=== PATIENT | female | born 1940 | race Hispanic/Latino ===

== ENCOUNTER → 2017-06-11 | Outpatient (CLI) | payer OTHER ==
[~2017-06-11] MED LIST: ASPI-1197 PO; CHOL200016 PO; CYAN10009 PO; DICL2100G TP; ESOM40CA PO; GLIP1TAB5 PO; INSLAN SQ; LIOT5TAB8 PO; LISI10TA7 PO; MULT-1258 PO; OMEGA XL PO; PENT100C9 PO; PYRI100T2 PO; ROSU5TAB PO; THYR30TA24 PO
== END | disposition home or self-care (01) ==
LOC: RAH 09:56
PROVIDERS: ATTEND Internal Medicine Nephrology
DX: Z12.31 Encounter for screening mammogram for malignant neoplasm of breast (principal)
CPT/HCPCS: 77067

== ENCOUNTER → 2018-06-13 | Outpatient (CLI) | payer OTHER ==
[~2018-06-13] MED LIST changes: -CHOL200016 PO; +CHOL200059 PO
== END | disposition home or self-care (01) ==
LOC: RAH 12:28
PROVIDERS: ATTEND Internal Medicine Nephrology
DX: Z12.31 Encounter for screening mammogram for malignant neoplasm of breast (principal)
CPT/HCPCS: 77067

== ENCOUNTER → 2019-06-14 | Outpatient (CLI) | payer OTHER ==
[~2019-06-14] MED LIST changes: +CYAN-52 PO; -CYAN10009 PO; +LIOT5TAB11 PO; -LIOT5TAB8 PO; +PYRI100T10 PO; -PYRI100T2 PO
== END | disposition home or self-care (01) ==
LOC: RAH 12:56
PROVIDERS: ATTEND Obstetrics & Gynecology
DX: Z12.31 Encounter for screening mammogram for malignant neoplasm of breast (principal)
CPT/HCPCS: 77067

== ENCOUNTER 2020-01-22 06:11 | Day surgery (SDC) | payer OTHER ==
[2020-01-15 10:11] LABS: BASOPHILS % (AUTO) 0.7 % (0.0-5.0); EOSINOPHILS % (AUTO) 2.2 % (0.0-8.0); HEMATOCRIT 36.4 % (36-48); LYMPHOCYTES % (AUTO) 32.8 % (21.0-51.0); MEAN CORPUSCULAR HEMOGLOBIN 30.7 pg (27.0-33.0); MEAN CORPUSCULAR VOLUME 93.1 fL (79-99); MONOCYTES % (AUTO) 7.7 % (3.0-13.0); NEUTROPHILS % (AUTO) 56.3 % (40.0-77.0); PLATELET COUNT (AUTO) 119 K/uL (130-400); RED BLOOD CELL COUNT(AUTO) 3.91 MIL/uL (4.00-5.50); RED CELL DISTRIBUTION WIDTH 13.8 % (11.0-15.5); WHITE BLOOD COUNT (AUTO) 5.9 K/uL (4.8-10.8)
[2020-01-19 06:23] VITALS: BP 159/68
--- NOTE | 2020-01-19 15:57 | NUR ---
Abnormal labs Called Dr. Mendoza to make him aware of abnormal labs. No further orders given
[2020-01-22] VITALS (19 sets, daily range): BP systolic 128–205; BP diastolic 52–98
[~2020-01-22] VITALS: Ht 167.6 cm; Wt 69.4 kg
[2020-01-22] MEDS ORDERED: SUCCINYLCHOLINE CHLORIDE 20 MG/ML 10 ML VIAL ONE (07:12)
[2020-01-22] MEDS ORDERED: PROPOFOL 10 MG/ML 20ML VIAL IV ONE (07:12)
[2020-01-22] MEDS ORDERED: LIDOCAINE PF 2% 5ML ABBOJECT ONE (07:12)
[2020-01-22] MEDS ORDERED: FENTANYL CITRATE PF 50 MCG/1 ML 2ML VIAL ONE (07:13)
[2020-01-22] MEDS ORDERED: ROCURONIUM 10MG/1ML SYR 10 MG/ML ML ONE (07:13)
[2020-01-22] MEDS ORDERED: FOLI1 PO (07:16)
[2020-01-22] MEDS ORDERED: LEVO75TA10 PO (07:16)
[2020-01-22] MEDS ORDERED: CALC-1009 PO (07:16)
[2020-01-22] MEDS ORDERED: [UNRECOGNIZED DRUG - OTHER] PO (07:16)
[2020-01-22] MEDS ORDERED: ACET-66 PO (07:21)
[2020-01-22] MEDS ORDERED: MAGN250T10 PO (07:21)
[2020-01-22] MEDS ORDERED: VITA400C19 PO (07:21)
[2020-01-22] MEDS ORDERED: OLOP2.5D6 OP (07:21)
[2020-01-22] MEDS ORDERED: KRIL1CAP29 PO (07:21)
[2020-01-22] MEDS ORDERED: INSU3INS3 SQ (07:21)
[2020-01-22] MEDS ORDERED: LEVO50 PO (07:21)
[2020-01-22] MEDS ORDERED: SODIUM CHLORIDE 0.9% 1000ML 1,000 ML IV ONE (07:22)
[2020-01-22] MEDS: CLINDAMYCIN 900 MG/D5% WATER 50 ML IV SCH ×2 (08:05→11:15)
[2020-01-22] MEDS ORDERED: ONDANSETRON HCL 4 MG/2 ML VIAL ONE (08:20)
[2020-01-22] MEDS ORDERED: GLYCOPYRROLATE 1 MG/5 ML SYRINGE ONE (08:55)
[2020-01-22] MEDS ORDERED: NEOSTIGMINE 5MG/5ML SYR IV ONE (08:55)
[2020-01-22] MEDS ORDERED: CLIN300C3 PO (09:02)
[2020-01-22] MEDS ORDERED: ACET1TAB25 PO (09:02)
[2020-01-22] MEDS ORDERED: SUGAMMADEX SODIUM 200 MG/2 ML VIAL IV ONE (09:18)
[2020-01-22] MEDS ORDERED: MEPERIDINE-PF 25 MG/ML SYG ONE (09:32)
[2020-01-22] MEDS ORDERED: ACETAMINOPHEN 325 MG TAB PO SCH (11:00)
--- NOTE | 2020-01-22 12:00 | NUR ---
DISCHARGE DISCHARGE INSTRUCTIONS REVIEWED WITH PATIENT AND NIECE - VERBALIZED UNDERSTANDING. WRITTEN DISCHARGE INSTRUCTIONS PROVIDED. NO DISTRESS NOTED. ALL BELONGINGS RETURNED TO PATIENT. RIGHT KNEE DRESSING - CLEAN, DRY, AND INTACT. IV DISCONTINUED - CATHETER INTACT. PATIENT DISCHARGED VIA WHEELCHAIR TO PRIVATE VEHICLE ACCOMPANIED BY NIECE.
== END 2020-01-22 12:00 | disposition home or self-care (01) ==
LOC: DAH 06:11
PROVIDERS: ATTEND Orthopaedic Surgery
DX: S83.241A Other tear of medial meniscus, current injury, right knee, initial encounter (principal); I10 Essential (primary) hypertension; E78.5 Hyperlipidemia, unspecified; K21.9 Gastro-esophageal reflux disease without esophagitis; E11.9 Type 2 diabetes mellitus without complications; M17.11 Unilateral primary osteoarthritis, right knee; I49.1 Atrial premature depolarization; Z90.710 Acquired absence of both cervix and uterus; Z98.890 Other specified postprocedural states; Z88.0 Allergy status to penicillin; Z88.6 Allergy status to analgesic agent; Z88.8 Allergy status to other drugs, medicaments and biological substances; Z79.899 Other long term (current) drug therapy; M22.41 Chondromalacia patellae, right knee; X58.XXXA Exposure to other specified factors, initial encounter; Y93.89 Activity, other specified; Y92.89 Other specified places as the place of occurrence of the external cause; Y99.8 Other external cause status; Z20.828 Contact with and (suspected) exposure to other viral communicable diseases
CPT/HCPCS: 29881; 36415; 82948 ×2; 85025; 93005; A4215; A4216; A4221; A4222; A4223 ×3; A4606 ×2; A4649 ×2; A4663; A4930; A6223; C9803; J0330; J2001; J2175; J2405; J2704; J2710; J3010; J3490 ×2; J7030 ×2; U0003

== ENCOUNTER → 2021-03-12 | Outpatient (CLI) | payer MEDICARE ==
[~2021-03-12] MED LIST changes: +ACET-66 PO; +ACET1TAB25 PO; +CALC-1009 PO; -CHOL200059 PO; +CLIN300C3 PO; -ESOM40CA PO; +FOLI1 PO; -INSLAN SQ; +INSU3INS3 SQ; +KRIL1CAP29 PO; +LEVO50 PO; +LEVO75TA10 PO; -LIOT5TAB11 PO; +LISI10TA24 PO; -LISI10TA7 PO; +MAGN250T10 PO; +OLOP2.5D16 OP; -OMEGA XL PO; -PENT100C9 PO; -PYRI100T10 PO; -THYR30TA24 PO; +VITA-395 PO; +[UNRECOGNIZED DRUG - OTHER] PO
== END | disposition home or self-care (01) ==
LOC: RAH 07:32
PROVIDERS: ATTEND Internal Medicine Gastroenterology
DX: K74.60 Unspecified cirrhosis of liver (principal)
CPT/HCPCS: 76700; 93975

== ENCOUNTER 2021-07-01 06:02 | Observation (INO) | payer MEDICARE ==
[2021-06-30 15:31] VITALS: BP 160/65
[2021-06-30 15:32] LABS: BASOPHILS % (AUTO) 0.7 % (0.0-5.0); EOSINOPHILS % (AUTO) 2.6 % (0.0-8.0); LYMPHOCYTES % (AUTO) 33.6 % (21.0-51.0); MEAN CORPUSCULAR HEMOGLOBIN 31.1 pg (27.0-33.0); MEAN CORPUSCULAR VOLUME 94.4 fL (79-99); NEUTROPHILS % (AUTO) 54.9 % (40.0-77.0); PLATELET COUNT (AUTO) 129 K/uL (130-400); RED BLOOD CELL COUNT(AUTO) 3.92 MIL/uL (4.00-5.50); RED CELL DISTRIBUTION WIDTH 13.4 % (11.0-15.5); WHITE BLOOD COUNT (AUTO) 5.9 K/uL (4.8-10.8)
[2021-06-30 15:40] LABS: CREATININE 0.9 mg/dL (0.5-1.5); POTASSIUM 4.5 mmol/L (3.5-5.1)
[~2021-07-01] VITALS: Ht 170.2 cm; Wt 68.9 kg
[2021-07-01] VITALS (24 sets, daily range): BP systolic 102–168; BP diastolic 45–86
[2021-07-01] MEDS: CLINDAMYCIN IVPB 600MG/50ML 50 ML IV SCH ×2 (06:00→08:25)
[~2021-07-01 06:02] MED LIST changes: -ACET-66 PO; -ACET1TAB25 PO; -ASPI-1197 PO; -CLIN300C3 PO; +ECOTRIN PO; +LACTATED RINGERS 1000ML 1,000 ML IV SCH; -LISI10TA24 PO; +LISI30TA4 PO; +METO-408 PO; -OLOP2.5D16 OP; +OLOP5DRO26 OP; +OMEP20CA12 PO; +ROSU20TA31 PO; -ROSU5TAB PO; +TYLENOL PM PO; +UBID100C45 PO; -VITA-395 PO; +VITAMIN D3 PO
[2021-07-01] MEDS ORDERED: 0.9%NACL 1000ML 1,000 ML IV ONE (07:09)
[2021-07-01] MEDS ORDERED: LIDOCAINE PF 100MG/5ML (2%) SYRINGE 5ML ONE (08:19)
[2021-07-01] MEDS ORDERED: SUCCINYLCHOLINE CHLORIDE 20 MG/ML 10 ML VIAL ONE (08:19)
[2021-07-01] MEDS ORDERED: PROPOFOL 10 MG/ML 20ML VIAL IV ONE (08:20)
[2021-07-01] MEDS ORDERED: FENTANYL CITRATE PF 50 MCG/1 ML 2ML VIAL ONE (08:20)
[2021-07-01] MEDS ORDERED: GLYCOPYRROLATE 1 MG/5 ML SYRINGE ONE (08:59)
[2021-07-01] MEDS ORDERED: ONDANSETRON 4MG INJ ONE (09:19)
[2021-07-01] MEDS ORDERED: PHENYLEPHRINE HCL 10 MG/ML 1ML VIAL IV ONE (09:22)
[2021-07-01] MEDS ORDERED: MEPERIDINE-PF 75 MG/ML SYG IM PRN (11:00)
[2021-07-01] MEDS ORDERED: ONDANSETRON 4MG INJ IVP PRN (11:00)
[2021-07-01] MEDS ORDERED: PROMETHAZINE HCL 25 MG/ML 1ML AMPULE IM PRN ×2 (11:00)
[2021-07-01] MEDS ORDERED: BISACODYL 10 MG SUPP.RECT RC PRN (11:00)
[2021-07-01] MEDS ORDERED: DOCUSATE SODIUM 100 MG CAP PO PRN (11:00)
[2021-07-01] MEDS ORDERED: IBUPROFEN 600 MG TABLET PO PRN (11:00)
[2021-07-01] MEDS ORDERED: SIMETHICONE 80 MG TAB.CHEW PO PRN (11:00)
[2021-07-01] MEDS: INSULIN HUMULIN R 100 UNIT/ML 3ML SQ SCH ×3 (11:30→20:55)
[2021-07-01] MEDS: LACTATED RINGERS 1000ML 1,000 ML IV SCH ×2 (14:32→22:06)
[2021-07-01] MEDS: ACETAMINOPHEN WITH CODEINE 1 TAB TAB PO PRN (21:00)
[2021-07-02 03:50] VITALS: BP 117/45
[2021-07-02] MEDS: ACETAMINOPHEN WITH CODEINE 1 TAB TAB PO PRN (04:00)
[2021-07-02] MEDS: LACTATED RINGERS 1000ML 1,000 ML IV SCH (06:12)
[2021-07-02 06:55] LABS: HEMATOCRIT 33.5 % (36-48); MEAN CORPUSCULAR HEMOGLOBIN 30.6 pg (27.0-33.0); MEAN CORPUSCULAR HGB CONC 31.9 g/dL (32.0-36.0); MEAN CORPUSCULAR VOLUME 95.7 fL (79-99); RED BLOOD CELL COUNT(AUTO) 3.5 MIL/uL (4.00-5.50); RED CELL DISTRIBUTION WIDTH 13.4 % (11.0-15.5); WHITE BLOOD COUNT (AUTO) 10.1 K/uL (4.8-10.8)
[2021-07-02 07:18] VITALS: BP 106/53
[2021-07-02] MEDS: INSULIN HUMULIN R 100 UNIT/ML 3ML SQ SCH (07:30)
[2021-07-02 11:11] VITALS: BP 118/52
== END 2021-07-02 13:30 | disposition home or self-care (01) ==
LOC: DAH 06:02 → WSH 06:03 → DAH 06:03 → WSH 10:30
PROVIDERS: ADMIT Obstetrics & Gynecology; ATTEND Obstetrics & Gynecology
DX: N81.6 Rectocele (principal); Z20.822 Contact with and (suspected) exposure to COVID-19; N39.3 Stress incontinence (female) (male); I10 Essential (primary) hypertension; E78.5 Hyperlipidemia, unspecified; K21.9 Gastro-esophageal reflux disease without esophagitis; M19.90 Unspecified osteoarthritis, unspecified site; E11.9 Type 2 diabetes mellitus without complications; A37.90 Whooping cough, unspecified species without pneumonia; K74.60 Unspecified cirrhosis of liver; K85.90 Acute pancreatitis without necrosis or infection, unspecified; D64.9 Anemia, unspecified; M51.36 Other intervertebral disc degeneration, lumbar region; Z90.49 Acquired absence of other specified parts of digestive tract; Z79.899 Other long term (current) drug therapy; Z98.890 Other specified postprocedural states; Z90.710 Acquired absence of both cervix and uterus
CPT/HCPCS: 36415 ×2; 57250; 57288; 80048; 82948 ×5; 85025; 85027; 86850; 86900; 86901; 87635; 93005; 96372; 96374; A4221; A4222; A4223; A4351; A4606; A4663; A6260; C1771; C9803; G0378 ×26; J0330; J2001; J2175; J2370; J2405 ×2; J2704; J3010; J3490 ×2; J7030; J7120 ×3

== ENCOUNTER → 2021-10-02 | Outpatient (CLI) | payer MEDICARE ==
[~2021-10-02] MED LIST changes: -LACTATED RINGERS 1000ML 1,000 ML IV SCH
== END | disposition home or self-care (01) ==
LOC: RAH 10:39
PROVIDERS: ATTEND Psychiatry & Neurology Neurology
DX: G31.84 Mild cognitive impairment of uncertain or unknown etiology (principal)
CPT/HCPCS: 70551

== ENCOUNTER → 2025-03-06 | Outpatient (CLI) | payer MEDICARE | END | disposition home or self-care (01) | LOC: RAH 13:07 | PROVIDERS: ATTEND Internal Medicine | DX: I08.3 Combined rheumatic disorders of mitral, aortic and tricuspid valves (principal); R07.81 Pleurodynia | CPT/HCPCS: 93306 ==